=== PATIENT | female | born 1985 | race Two or more races ===

== ENCOUNTER 2017-11-23 17:34 | Emergency (ER) | payer SELFPAY ==
[~2017-11-23] VITALS: Ht 160 cm; Wt 63.5 kg
[2017-11-23] MEDS ORDERED: IBUPROFEN 600 MG TABLET ONE (18:11)
[2017-11-23] MEDS: IBUPROFEN 600 MG TABLET PO ONE (18:22)
--- NOTE | 2017-11-23 19:06 | NUR ---
Patient discharged to home in stable conditon. Written and verbal after care instructions given. Patient verbalizes understanding of instructions.pt walks in steady gait. pt accompanid by so
[2017-11-23 19:08] VITALS: BP 139/76
== END 2017-11-23 19:09 | disposition home or self-care (01) ==
LOC: ER 17:36
DX: S13.4XXA Sprain of ligaments of cervical spine, initial encounter (principal); S09.90XA Unspecified injury of head, initial encounter; S49.92XA Unspecified injury of left shoulder and upper arm, initial encounter; V49.9XXA Car occupant (driver) (passenger) injured in unspecified traffic accident, initial encounter; Y93.89 Activity, other specified; Y92.410 Unspecified street and highway as the place of occurrence of the external cause; Y99.8 Other external cause status
CPT/HCPCS: 72125; 73030; 99284; A4663